=== PATIENT | female | born 1980 | race Caucasian/White ===

== ENCOUNTER 2019-10-11 11:47 | Emergency (ER) | payer MEDICAID ==
[~2019-10-11] VITALS: Ht 175.3 cm; Wt 104.5 kg
[2019-10-11] MEDS ORDERED: IBUP-2070 PO (12:05)
[2019-10-11] MEDS ORDERED: PERTUSS(ACELL),DIPH,TET VAC/PF 0.5 ML VIAL IM ONE (12:45)
[2019-10-11] MEDS ORDERED: BACITRACIN 0.9 GM PACKET OINTMENT TP ONE (12:45)
[2019-10-11] MEDS ORDERED: LIDOCAINE/PF 1% 5 ML VIAL INJ ONE (12:45)
[2019-10-11 14:15] VITALS: BP 122/87
== END 2019-10-11 14:41 | disposition home or self-care (01) ==
LOC: EMS 11:51
DX: S51.012A Laceration without foreign body of left elbow, initial encounter (principal); F17.210 Nicotine dependence, cigarettes, uncomplicated; Z85.89 Personal history of malignant neoplasm of other organs and systems; Z98.890 Other specified postprocedural states; Z79.899 Other long term (current) drug therapy; Z91.09 Other allergy status, other than to drugs and biological substances; W18.39XA Other fall on same level, initial encounter; Y93.72 Activity, wrestling; Y92.89 Other specified places as the place of occurrence of the external cause; Y99.8 Other external cause status
CPT/HCPCS: 12002; 73080; 90471; 90715; 99283; 99406; J2001

== ENCOUNTER 2019-10-17 23:50 | Emergency (ER) | payer MEDICAID ==
[~2019-10-17] VITALS: Ht 175.3 cm; Wt 113.6 kg
[~2019-10-17 23:50] MED LIST: IBUP-2070 PO
[2019-10-18] MEDS ORDERED: CEPH-581 PO (00:18)
[2019-10-18] MEDS ORDERED: SULF1TAB41 PO (00:18)
[2019-10-18] MEDS ORDERED: PRED1 PO (00:18)
[2019-10-18] MEDS ORDERED: HYDROGEN PEROXIDE 118 ML SOLUTION TP ONE (02:00)
[2019-10-18 02:07] VITALS: BP 119/84
== END 2019-10-18 02:28 | disposition home or self-care (01) ==
LOC: EMS 23:52
DX: T81.31XA Disruption of external operation (surgical) wound, not elsewhere classified, initial encounter (principal); F17.210 Nicotine dependence, cigarettes, uncomplicated; Z79.899 Other long term (current) drug therapy; Y83.8 Other surgical procedures as the cause of abnormal reaction of the patient, or of later complication, without mention of misadventure at the time of the procedure; Y82.8 Other medical devices associated with adverse incidents